=== PATIENT | female | born 2005 | race Caucasian/White ===

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

== ENCOUNTER → 2024-02-27 12:41 | Outpatient (CLI) | payer OTHER, SELFPAY ==
--- NOTE | 2024-03-23 15:43 | DIET.CONS ---
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 Donna is wanting help to balance nutritional needs with her activity level. With a recent decrease in activity at the start of summer, reports a return of menses. Is doing PT for foot. Open to meeting needs to support activity level. Activity: School Year: Run 4 miles 4x/wk (~30 min) ROTC: 2x/wk 1 hr (strength+ cardio) Crossfit: 1x/wk 1 hr-45 min 15-20k steps daily Now (summer): Swim 3x/wk 1 hr weights 2x/wk 1 hr + 20 min elliptical walks 20k steps/daily Diet recall: B-banana, pb, whole grain bread, honey L-beef jerky, zucchini/sweet potato muffins, strawberries D-chicken breast, salad w/ cheese latvian yogurt w/ pb granola, strawberries, karen chips Provided additional journal days Avg calorie intake: 7553-9369/day Ht: 5 ft 4 in Wt: 127 lb 2 oz BMI: 21.8 Weight history: 57.663 kg 02/08/24 56.245 kg 08/15/23 53.07 kg 05/03/23 Nutrition Diagnosis: Inadequate oral intake r/t increased energy-protein needs in setting of high activity level aeb diet recall, amenorrhea Interventions: 1. Increase energy protein intake -Discussed female athlete triad, increased pro+kcal needs, balanced meals, macros, fluid, weight Goals: 1. Extra snack x2 or post workout snack + additional portion to meal -300-500 kcals, 10-20 g protein for current level activity (x2 for when at school) 2. 1 rest day/week EER: Needs during school based on report activity: 7947-1015 kcal (MSJ 1400x 1.8 vs. [id number]) Needs now: 9142-2348 kcal (MSJ 1400 x 1.5) Monitoring/Evaluations: return of menses, goals, recall, labs Electronically Signed by: Kaylee Call 03/23/24 15:43 Clinical [address] [id number]
== END ==
PROVIDERS: Family Provider Family Medicine; PCP Family Medicine; Referring Provider Family Medicine
DX: F50.9 Eating disorder, unspecified (principal); M81.8 Other osteoporosis without current pathological fracture; N91.2 Amenorrhea, unspecified; Z71.3 Dietary counseling and surveillance
CPT/HCPCS: 97802

== ENCOUNTER → 2024-03-26 08:52 | Outpatient (CLI) | payer OTHER, SELFPAY ==
--- NOTE | 2024-03-26 08:54 | DI.NM.S_ITS ---
PROCEDURE: NM BONE 3 PHASE RADIOPHARMACEUTICAL: 19.8 mCi Tc-99m MDP IV. INDICATIONS: Pain outside of right foot, stress fracture TECHNIQUE: Multiple bone scintigrams were obtained after intravenous injection of Tc-99m MDP, including flow, blood pool, and delayed images centered to the region of interest. COMPARISON: None. FINDINGS: Degenerative uptake right 1st MTP joint. No suspicious uptake to suggest stress fracture. IMPRESSION: No stress fracture. Dictated by: Que Oconnell M.D. on 03/26/2024 at 16:03 Approved by: Que Oconnell M.D. on 03/26/2024 at 16:08
== END ==
LOC: NUCM 08:53
PROVIDERS: Family Provider Family Medicine; PCP Family Medicine; Referring Provider Podiatrist; Visit Provider Podiatrist
DX: M84.374A Stress fracture, right foot, initial encounter for fracture (principal)
CPT/HCPCS: 78315; A9503

== ENCOUNTER → 2024-04-19 06:54 | Outpatient (CLI) | payer OTHER, SELFPAY ==
[2024-04-22 22:06] LABS: QuantiFERON Mitogen Value >10.00 IU/mL (.); QuantiFERON TB Gold Plus Negative (Negative); QuantiFERON TB2 Ag Value 0.03 IU/mL (.)
== END ==
PROVIDERS: Family Provider Family Medicine; PCP Family Medicine; Referring Provider Family Medicine; Visit Provider Family Medicine
DX: Z11.1 Encounter for screening for respiratory tuberculosis (principal)
CPT/HCPCS: 36415; 86480

== ENCOUNTER → 2025-04-29 10:06 | Outpatient (CLI) | payer OTHER, SELFPAY ==
[2025-04-30 16:59] LABS: HIV 1 & 2 Ab/Ag 4th Gen Combo NEGATIVE (NEGATIVE)
[2025-05-01 15:10] LABS: QuantiFERON Mitogen Value >10.00 IU/mL (.); QuantiFERON Nil Value 0.01 IU/mL (.); QuantiFERON TB Gold Plus Negative (Negative); QuantiFERON TB1 Ag Value 0.02 IU/mL (.); QuantiFERON TB2 Ag Value 0.02 IU/mL (.)
== END ==
PROVIDERS: PCP Family Medicine; Referring Provider Family Medicine; Visit Provider Family Medicine
DX: Z01.419 Encounter for gynecological examination (general) (routine) without abnormal findings (principal); Z02.3 Encounter for examination for recruitment to armed forces; Z12.4 Encounter for screening for malignant neoplasm of cervix
CPT/HCPCS: 36415; 86480; 87389